=== PATIENT | female | born 2000 | race Caucasian/White ===

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

== ENCOUNTER 2021-01-16 15:43 | Emergency (ER) | payer OTHER, SELFPAY ==
[2021-01-16 16:11] VITALS: BP 0/0; PULSE 0; RESP 0; TEMP -17.7; TEMP 0
== END 2021-01-16 16:12 | disposition left against medical advice (07) ==
LOC: UTC 15:48
PROVIDERS: Emergency Provider Nurse Practitioner Family
DX: Z53.21 Procedure and treatment not carried out due to patient leaving prior to being seen by health care provider (principal)

== ENCOUNTER → 2021-01-18 12:23 | Outpatient (CLI) | payer OTHER, SELFPAY | PROVIDERS: Visit Provider Nurse Practitioner Family | DX: Z20.822 Contact with and (suspected) exposure to COVID-19 (principal) | CPT/HCPCS: C9803; U0003; U0005 ==

== ENCOUNTER 2021-03-05 12:32 | Emergency (ER) | payer OTHER, SELFPAY ==
[2021-03-05 13:38] VITALS: BP 107/68; PULSE 65; RESP 18; TEMP 36.9; O2SAT 100; BMI 26.6
[2021-03-05 14:25] LABS: UTC Influenza A Antigen Negative (Negative); UTC Strep Screen (Rapid) Negative (Negative)
[2021-03-05 14:26] LABS: UTC Influenza B Antigen Negative (Negative)
--- NOTE | 2021-03-05 14:49 | HMH.EDUTC ---
[facility] [place] Disposition Clinical Impression: Viral syndrome Disposition: Home, Self-Care Condition on Discharge: Good Instructions: DI for Viral Syndrome, DI for Vomiting -- Adult Additional Instructions: Drink extra fluids with and between meals. If you have difficulty drinking, try very small amounts of water or suck on ice chips. ? Avoid fruit juices, as these do not replace minerals and can actually increase diarrhea. ? Children and adults can use sports drinks to replenish electrolytes. Younger children and infants should use products formulated for children, like oral rehydration solutions. ? Eat food in small amounts and let your stomach recover. ? Get lots of rest. You may feel tired or weak. ? No greasy or fried foods for the next 24-48 hours BRAT diet Bananas Rice Apples and [place] ? Make sure to drink plenty of liquids ? Return if needed ? Straight to ER if any life threatening symptoms ? Zofran as prescribed ? Follow up with family doctor in the next 48-72 hours if no improvement or any worsening of symptoms Prescriptions: Ondansetron [Zofran 4mg ODT] 4 mg PO TIDP PRN #10 tab PRN Reason: Vomiting Transmission Status: Pending to [facility] Referrals: Provider,Referral, MD [Primary Care Provider] - As needed Forms: Work/School Release Time of Disposition: 14:57 Medical Decision Making - Jamey Inquiry Pt receiving controlled substance: No Jamey was queried for this patient: No Vital Signs: 03/05/21 13:38 Temperature 98.4 F Temperature Source Oral Pulse Rate [Right Brachial] 65 Respiratory Rate 18 Blood Pressure [Right Arm] 107/68 L Blood Pressure Mean [Right Arm] 81 Blood Pressure Source [Right Arm] Automatic Cuff Blood Pressure Position [Right Arm] Sitting 02 Sat by Pulse Oximetry 100 Oxygen Delivery Method Room Air - Lab Data Lab results reviewed: Yes: I reviewed the patient's lab results. Lab Results 03/05/21 14:24: Influenza Type A Ag Negative, Influenza Type B Ag Negative 03/05/21 14:24: Strep Scn Rapid Clinic Negative Orders (Tests/Meds): ORDERS Category Date Time Status Covid-19 Nasal PCR ([facility]) Routine Lab 03/05/21 14:56 Ordered Strep Screen Confirmation Stat Micro 03/05/21 14:24 Received [facility] [place] HPI - General Stated complaint: vomiting,fever Time Seen by Provider: 03/05/21 14:49 Mode of Arrival: Ambulatory Source of Information: Patient Limitations: No Limitations Description of Symptoms (Recalled from Triage Doc. by RN): Vomiting, fever x2 days, covid test negative yesterday HEENT Symptoms (Recalled from RN notes): Yes Resp Symptoms (Recalled from RN notes): Yes Skin Symptoms (Recalled from RN notes): No MS Symptoms (Recalled from RN notes): No Functional Status (Recalled from RN notes): wnl - History of Present Illness Provider Complaint: Patient states that she has been having fever, body aches, chills, and vomiting State that they tested her for COVID at work yesterday but it was a rapid and she didnt trust them that much - Related Data Previous Rx's Medication Instructions Recorded Azithromycin [Zithromax 250mg 250 mg PO DIRECTED #6 tab 05/13/20 tab] Benzonatate [Tessalon Perle 100mg 100 mg PO TID #30 cap 05/13/20 Cap] predniSONE [Prednisone 20mg 20 mg PO BID #10 tab 05/13/20 Tab] Benzonatate [Tessalon Perle 100mg 100 mg PO TID PRN #15 cap 10/31/20 Cap*] Ondansetron [Zofran 4mg ODT] 4 mg PO TIDP PRN #6 tab 10/31/20 Ondansetron [Zofran 4mg ODT] 4 mg PO DAILYP PRN #12 tab 11/25/20 Ibuprofen [Ibuprofen 600mg 600 mg PO Q6HP PRN #30 tab 12/15/20 Tablet] Ondansetron [Zofran 4mg ODT] 4 mg PO TIDP PRN #10 tab 03/05/21 Allergies Allergy/AdvReac Type Severity Reaction Status Date / Time No Known Allergies Allergy Verified 05/04/19 11:59 - Worker's Comp Is this a Worker's Comp case?: No H History - Hepatitis A Screen Drug use history?: No High risk sexual behaviors?: No History of sexual
[2021-03-05 14:55] VITALS: BP 107/68; PULSE 65; RESP 18; TEMP 36.9; O2SAT 100
== END 2021-03-05 15:00 | disposition home or self-care (01) ==
PROVIDERS: Emergency Provider Nurse Practitioner
DX: B34.9 Viral infection, unspecified (principal); K21.9 Gastro-esophageal reflux disease without esophagitis; G43.709 Chronic migraine without aura, not intractable, without status migrainosus
CPT/HCPCS: 87804; 87880; 99203; C9803; G0463; U0003; U0005

== ENCOUNTER 2021-04-30 11:55 | Emergency (ER) | payer OTHER, SELFPAY ==
[2021-04-30 12:11] VITALS: BP 125/76; PULSE 74; RESP 18; TEMP 37.1; O2SAT 98; BMI 29.2
--- NOTE | 2021-04-30 12:23 | HMH.EDUTC ---
[facility] [place] Disposition Clinical Impression: Strep throat Disposition: Home, Self-Care Condition on Discharge: Good Instructions: Strep Throat, DI for Strep Throat Additional Instructions: *Monitor Temp, Over the counter Motrin or Tylenol as directed/as needed Tylenol every 4 hours and Motrin every 6 hours (as long as your family doctor has told you that you can take it) for fever or pain. and straight to ER if unable to lower temp less than 101.0 after medication given *Warm salt water gargles may help to soothe the throat *Throat Lozenges *Warm fluids like tea with honey may help to soothe the throat *Sleep elevated *Humidifier/Vaporizer *If you did not take Penicillin shot or was unable to, start taking antibiotic immediately and make sure that you take it for the FULL length of time although you should start to feel better in 24-48 hours *change toothbrush and toothpaste 24-48 hours after starting to take antibiotics so you do not reinfect yourself Monitor Temp. Tylenol and/or Ibuprofen as needed. ER if fever is no less than 101 despite alternating Tylenol and Ibuprofen * Encourage fluids, water, Gatorade, powerade, pedialyte if infant/toddler/or child *Cold fluids, popsicles and ice cream may feel good on his throat Follow up IMMEDIATELY for new or worsening symptoms or no Noticeable improvement over the next 48-72 hours. 911 for difficulty breathing or swallowing Prescriptions: Amoxicillin [Amoxicillin 875MG Tab] 875 mg PO Q12H #20 tab Transmission Status: Pending to [email or web address] Ondansetron [Zofran 4mg ODT] 4 mg PO TIDP PRN #9 tab PRN Reason: Nausea Transmission Status: Pending to [email or web address] Referrals: Provider,Referral, MD [Primary Care Provider] - As needed Forms: Work/School Release Time of Disposition: 12:29 Medical Decision Making - Jamey Inquiry Pt receiving controlled substance: No Jamey was queried for this patient: No Vital Signs: 04/30/21 12:11 Temperature 98.7 F Temperature Source Temporal Artery Scan Pulse Rate [Right Brachial] 74 Respiratory Rate 18 Blood Pressure [Right Arm] 125/76 Blood Pressure Mean [Right Arm] 92 Blood Pressure Source [Right Arm] Automatic Cuff Blood Pressure Position [Right Arm] Sitting 02 Sat by Pulse Oximetry 98 Oxygen Delivery Method Room Air - Lab Data Lab results reviewed: Yes: I reviewed the patient's lab results. Lab Results 04/30/21 12:15: Strep Scn Rapid Clinic Positive A Orders (Tests/Meds): ORDERS Category Date Time Status Strep Screen Confirmation Stat Micro 04/30/21 12:15 Received [facility] [place] HPI - General Stated complaint: sore throat, vomiting, abd pains Time Seen by Provider: 04/30/21 12:23 Mode of Arrival: Ambulatory Source of Information: Patient Limitations: No Limitations Description of Symptoms (Recalled from Triage Doc. by RN): vomiting, abdominal pain, sore throat, cough HEENT Symptoms (Recalled from RN notes): Yes Resp Symptoms (Recalled from RN notes): No Skin Symptoms (Recalled from RN notes): No MS Symptoms (Recalled from RN notes): No Functional Status (Recalled from RN notes): WNL - History of Present Illness Provider Complaint: Patient states that she has been having nausea, vomiting, stomach feeling achy and sore throat States that she gets this way when she has strep throat and thinks she may have it now - Related Data Previous Rx's Medication Instructions Recorded Azithromycin [Zithromax 250mg 250 mg PO DIRECTED #6 tab 05/13/20 tab] Benzonatate [Tessalon Perle 100mg 100 mg PO TID #30 cap 05/13/20 Cap] predniSONE [Prednisone 20mg 20 mg PO BID #10 tab 05/13/20 Tab] Benzonatate [Tessalon Perle 100mg 100 mg PO TID PRN #15 cap 10/31/20 Cap*] Ondansetron [Zofran 4mg ODT] 4 mg PO TIDP PRN #6 tab 10/31/20 Ondansetron [Zofran 4mg ODT] 4 mg PO DAILYP PRN #12 tab 11/25/20 Ibuprofen [Ibuprofen 600mg 600 mg PO Q6HP PRN #30 tab 12/15/20 Tablet] Ondanse
[2021-04-30 12:26] LABS: UTC Strep Screen (Rapid) Positive (Negative)
[2021-04-30 12:34] VITALS: BP 124/76; PULSE 74; RESP 18; TEMP 37.1; O2SAT 98
== END 2021-04-30 12:34 | disposition home or self-care (01) ==
PROVIDERS: Emergency Provider Nurse Practitioner
DX: J02.0 Streptococcal pharyngitis (principal); K21.9 Gastro-esophageal reflux disease without esophagitis
CPT/HCPCS: 87880; 99202; G0463

== ENCOUNTER → 2021-05-22 08:44 | Outpatient (CLI) | payer OTHER, SELFPAY ==
--- NOTE | 2021-05-22 08:52 | XR_ITS ---
PROCEDURE INFORMATION: Exam: XR Left Knee Exam date and time: 05/22/2021 8:57 AM Age: 21 years old Clinical indication: Pain; Knee; Left; Additional info: Left knee pain TECHNIQUE: Imaging protocol: XR Left knee. Views: 4 or more views. COMPARISON: CR XR KNEE LT 3V 12/15/2020 5:10 PM FINDINGS: Bones/joints: Normal. The joint spaces are maintained. No fractures or dislocations. Soft tissues: Normal. No swelling or abnormal density. IMPRESSION: Unremarkable knee.
== END ==
PROVIDERS: Visit Provider Orthopaedic Surgery
DX: M25.562 Pain in left knee (principal)
CPT/HCPCS: 73564

== ENCOUNTER → 2021-06-05 16:01 | Outpatient (CLI) | payer OTHER, SELFPAY ==
--- NOTE | 2021-06-05 16:01 | MR_ITS ---
PROCEDURE INFORMATION: Exam: MR Left Lower Extremity Joint Without Contrast, Knee Exam date and time: 06/05/2021 4:08 PM Age: 21 years old Clinical indication: Pain; Knee; Left; Additional info: Left knee pain. PT fell off roof [id number] ago. Lateral sided knee pain. Pain when bending. Intermittent swelling. Knee instability. TECHNIQUE: Imaging protocol: MR of the Left lower extremity joint without contrast. Exam focused on the knee. COMPARISON: CR XR KNEE LT 4V 05/22/2021 8:57 AM FINDINGS: Bones and cartilage: Unremarkable. No bone abnormalities. Articular cartilage normal. Joint spaces: No joint effusion. Medial meniscus: See Lateral meniscus finding. Lateral meniscus: There is a small nondisplaced horizontal oblique tear anterior horn lateral meniscus extending to the inferior articular surface. No other internal derangement. Anterior cruciate ligament: Unremarkable. No tear. Posterior cruciate ligament: Unremarkable. No tear. Medial capsule and supporting structures: Unremarkable. No tear. Lateral capsule and supporting structures: Unremarkable. No tear. Extensor mechanism of knee: Unremarkable. No tear. Muscles: Unremarkable. Soft tissues: Unremarkable. IMPRESSION: There is a small nondisplaced horizontal oblique tear anterior horn lateral meniscus extending to the inferior articular surface. No other internal derangement.
== END ==
PROVIDERS: Visit Provider Orthopaedic Surgery
DX: M25.562 Pain in left knee (principal)
CPT/HCPCS: 73721

== ENCOUNTER 2021-07-03 10:49 | Emergency (ER) | payer OTHER, SELFPAY ==
[2021-07-03 10:59] VITALS: BP 130/65; PULSE 74; RESP 18; TEMP 36.7; O2SAT 97; BMI 29.9
[2021-07-03 11:29] LABS: Strep Scrn Group A (Rapid) Negative (Negative)
--- NOTE | 2021-07-03 11:54 | HMH.EDUTC ---
[facility] [place] Disposition Clinical Impression: Pharyngitis Qualifiers: Pharyngitis/tonsillitis etiology: unspecified etiology Qualified Code(s): J02.9 - Acute pharyngitis, unspecified Sinus infection Qualifiers: Sinusitis location: unspecified location Chronicity: acute Recurrence: non-recurrent Qualified Code(s): J01.90 - Acute sinusitis, unspecified Disposition: Home, Self-Care Condition on Discharge: Good Instructions: DI for Pharyngitis/Tonsillopharyngitis -- Adult Additional Instructions: Drink plenty of fluids. Take tylenol or ibuprofen for pain or fever. Take the medications as directed. Follow up with your regular doctor. GO TO THE ER FOR ANY WORSENING SYMPTOMS Referrals: Provider,Referral, MD [Primary Care Provider] - Forms: Work/School Release Time of Disposition: 11:58 Medical Decision Making - Medical Records Medical records reviewed: No: I reviewed the patient's medical records. - Jamey Inquiry Pt receiving controlled substance: No Vital Signs: 07/03/21 10:59 07/03/21 12:03 07/03/21 12:27 Temperature 98.0 F 98.0 F 98.0 F Temperature Source Oral Pulse Rate 74 74 Pulse Rate [Left] 74 Respiratory Rate 18 18 18 Blood Pressure 130/65 130/65 Blood Pressure [Right Arm] 130/65 Blood Pressure Mean [Right Arm] 86 02 Sat by Pulse Oximetry 97 - Lab Data Lab results reviewed: Yes: I reviewed the patient's lab results. Lab Results 07/03/21 10:59: Group A Strep Rapid Negative [facility] [place] HPI - General Stated complaint: sore throat, nasal congestion, fever Time Seen by Provider: 07/03/21 11:54 Mode of Arrival: Ambulatory Source of Information: Patient Limitations: No Limitations Description of Symptoms (Recalled from Triage Doc. by RN): pt c/o sore throat, fever, and stuffy nose that began 1 week ago. HEENT Symptoms (Recalled from RN notes): Yes Resp Symptoms (Recalled from RN notes): Yes Skin Symptoms (Recalled from RN notes): No MS Symptoms (Recalled from RN notes): No Functional Status (Recalled from RN notes): wnl - History of Present Illness Provider Complaint: She states that for the past 1 week she has had sinus congestion and a sore throat. - Related Data Home Medications Medication Instructions Recorded Confirmed No Known Home Medications 07/04/21 07/04/21 Allergies Allergy/AdvReac Type Severity Reaction Status Date / Time No Known Allergies Allergy Verified 06/17/21 13:18 - Worker's Comp Is this a Worker's Comp case?: No Is this an [facility] Worker's Comp?: No Is this a [facility] Worker's Comp?: No [facility] History - Hepatitis A Screen Attestation statement:: This patient has been screened for Hepatitis A risk factors. I have reviewed the patient's past medical history: Yes Medical History: Reports:: Depression, Gastroesophageal Reflux Disease(GERD), Migraine Denies:: Cancer, Diabetes Mellitus Type 1, Diabetes Mellitus Type 2, MRSA, Seizures Other Medical History: Denies: Blood Transfusion Reaction Laterality Cases: Bilateral: Tonsillectomy Other Surgeries: Yes: No Previous Surgery, Other Amputation: No Fractures: No - Social History Smoking Status: Never smoker # Packs/Day (cigarettes): 0 Alcohol Intake: never Substance Use Type: marijuana Occupational Status: other Housing: house Household Members: family - Psychiatric History Pschychiatric History:: Reports:: Depression Family Hx:: No significant family history ROS Obtained: Yes All systems reviewed & no additional complaints - Constitutional Constitutional: Reports as per HPI - Eyes Eyes: Denies eye discharge - ENT Ears, Nose, Mouth, and Throat: Reports as per HPI - Cardiovascular Cardiovascular: Denies chest pain - Respiratory Respiratory: Denies chest congestion, Reports cough Physical Exam - General General appearance: alert, in no apparent distress - Head Head exam: atraumatic, normocephalic, normal inspection - Eye Eye exam: Present: normal appeara
[2021-07-03 12:03] VITALS: BP 130/65; PULSE 74; RESP 18; TEMP 36.7
[2021-07-03 12:27] VITALS: BP 130/65; PULSE 74; RESP 18; TEMP 36.7
== END 2021-07-03 12:28 | disposition home or self-care (01) ==
PROVIDERS: Emergency Provider Nurse Practitioner Family
DX: J02.9 Acute pharyngitis, unspecified (principal); J01.90 Acute sinusitis, unspecified; K21.9 Gastro-esophageal reflux disease without esophagitis; G43.909 Migraine, unspecified, not intractable, without status migrainosus; F32.A Depression, unspecified
CPT/HCPCS: 87430; 99213; G0463

== ENCOUNTER 2021-07-04 22:53 | Emergency (ER) | payer OTHER, SELFPAY ==
[2021-07-04 22:53] VITALS: BP 135/70; PULSE 74; RESP 16; TEMP 36.8; O2SAT 98; BMI 29.9
--- NOTE | 2021-07-04 22:56 | ECG_ITS ---
APPROVED REPORT Exam: Resting ECG HR:79 bpm ECG Measurements Heart Rate 79 AXES WY 141 P 36 QRSd 94 QRS 62 QT 343 T 44 QTc 377 Conclusion SINUS RHYTHM WITH SINUS ARRHYTHMIA NORMAL ECG UNCONFIRMED REPORT Electronically signed by : Charles Limon MD 07/06/2021 20:14:42
[2021-07-04 23:10] LABS: ABG Base Excess -2.5 mmol/L (-2.4-2.3); ABG HCO3 21.9 mmhg (22.0-26.0); ABG Oxygen Saturation 98 % (90-100); ABG PH 7.43 mmol/L (7.35-7.45); ABG PO2 97.6 mmhg (80-100)
[2021-07-04 23:11] LABS: Allen's Test Acceptable; Oxygen ROOM AIR %; Source Right Radial
--- NOTE | 2021-07-04 23:15 | XR_ITS ---
PROCEDURE INFORMATION: Exam: XR Chest Exam date and time: 07/04/2021 11:33 PM Age: 21 years old Clinical indication: Shortness of breath and other: Possible overdose TECHNIQUE: Imaging protocol: XR of the chest. Views: 1 view. COMPARISON: CR XR CHEST 2V 04/16/2020 4:08 AM FINDINGS: Lungs: Stable calcified granuloma in the peripheral left mid lung. Lungs otherwise clear. No consolidation. Pleural spaces: No pleural effusion. No pneumothorax. Heart/Mediastinum: Normal heart size. Bones/joints: Unremarkable. IMPRESSION: No acute findings.
[2021-07-04 23:19] LABS: Microscopic,Cath URINE MICROSCOPIC (MICROSCOPIC)
[2021-07-04 23:23] LABS: Basophils # 0.3 K/mm3 (0-0.2); Basophils % 2.5 % (0.1-2.0); Eosinophils # 0.2 K/mm3 (0.0-0.4); Eosinophils % 1.5 % (0.1-12.0); Hematocrit 42.8 % (37.0-47.0); Hemoglobin 14.2 g/dL (12.2-16.2); Lymphocytes # 2.4 K/mm3 (0.7-4.5); Lymphocytes % 23.3 % (10-50); Mean Corpuscular HGB Conc 33.2 g/dL (31.8-35.4); Mean Corpuscular Hemoglobin 29.8 pg (27.0-31.2); Mean Corpuscular Volume 89.7 fl (81-99); Mean Platelet Volume 8.1 fl (7.4-10.4); Monocytes # 0.6 K/mm3 (0.1-1.0); Monocytes % 5.7 % (1.7-9.3); Neutrophils # 6.8 K/mm3 (1.8-7.8); Neutrophils % 67.1 % (37.0-80.0); Platelet Count 373 K/mm3 (142-424); Red Blood Count 4.77 M/mm3 (4.20-5.40); Red Cell Distribution Width 14.4 % (11.5-17.5); White Blood Count 10.2 K/mm3 (4.5-13.0)
[2021-07-04 23:25] LABS: Appearance,Urine/Cath CLEAR (Clear); Bilirubin,Cath Negative (Negative); Blood, Urine/Cath 1+ (Negative); Color,Urine/Cath YELLOW (Yellow); Glucose,Urine/Cath (UA) Negative (Negative); Ketones,Urine/Cath Negative (Negative); Leukocyte Esterase,Cath Negative (Negative); Nitrate,Cath Negative (Negative); Protein,Urine/Cath Negative (Negative); Specific Gravity, Urine/Cath <= 1.005 (1.005-1.030); Urobilinogen,Cath 0.2 EU/dl (0.2)
[2021-07-04 23:26] LABS: Alanine Aminotransferase 18 U/L (12-78); Albumin Level 4.7 g/dl (3.5-5.0); Albumin/Globulin Ratio 1.8 (1.1-1.8); Alkaline Phosphatase 80 U/L (38-126); Anion Gap 15.4 mEq/L (5-15); Aspartate Amino Transferase 21 U/L (14-36); Bilirubin,Total 0.4 mg/dl (0.2-1.3); Blood Urea Nitrogen 9 mg/dl (7-17); Calcium 9.7 mg/dl (8.4-10.2); Carbon Dioxide 27 mmol/L (22.0-30.0); Chloride 106 mmol/L (98-107); Creatinine Clearance Estimated 129 mL/min (50-200); Estimated Glomerular Filt Rate 80 ml/min (>60); GFR (African American) 97 ML/MIN (>60); Globulin 2.6 g/dL (1.3-3.2); Glucose 109 mg/dl (74-100); Potassium 3.4 mmoL/L (3.5-5.1); Sodium 145 mmol/L (136-145); Total Protein,Serum 7.3 g/dl (6.3-8.2)
[2021-07-04 23:27] LABS: Acetaminophen < 10 ug/ml (10-30); Ethyl Alcohol 125 mg/dl (0-10); Salicylate < 1.0 mg/dL (2.0-20.0)
[2021-07-04 23:28] LABS: Urine Pregnancy, HCG Qual. Negative (Negative)
[2021-07-04 23:31] LABS: Lactic Acid 1.8 mmol/L (0.7-2.1)
[2021-07-04 23:32] LABS: C-Reactive Protein 0.8 mg/L (0-4)
[2021-07-04 23:35] LABS: Barbiturates Screen,Urine Negative ng/ml (<200); Benzodiazepines Screen,Urine Negative ng/ml (<200)
[2021-07-04 23:36] LABS: Amphetamine/Metha Screen,Urine Negative ng/ml (<1000); WBC,Urine/Cath Occasional #/hpf (0-3)
[2021-07-04 23:37] LABS: Cannabinoid Screen,Urine Negative ng/ml (<50); Squamous Epithelial Ur./Cath Occasional #/hpf (0-5)
[2021-07-04 23:38] LABS: Cocaine Screen,Urine Negative ng/ml (<300); Methadone Screen,Urine Negative ng/ml (<300)
[2021-07-04 23:39] LABS: Opiate Screen,Urine Negative ng/ml (<300); Phencyclidine Screen,Urine Negative ng/ml (<25)
[2021-07-04 23:48] LABS: Erythrocyte Sedimentation Rate 13 mm/hr (0-20)
[2021-07-04 23:53] LABS: Procalcitonin 0.059 ng/mL (0.0-2.0)
--- NOTE | 2021-07-05 01:08 | HMH.EDAMS ---
ED Disposition Clinical Impression: Alcoholic intoxication Qualifiers: Complication of substance-induced condition: uncomplicated Qualified Code(s): F10.920 - Alcohol use, unspecified with intoxication, uncomplicated Disposition: Home, Self-Care Condition on Discharge: Good Instructions: DI for Alcohol Poisoning Additional Instructions: call pcp for follow up Referrals: Provider,Referral, [Primary Care Provider] - - Critical Care Critical Care Time: No Attestation: On 07/04/21, the high probability of a clinically significant, sudden or life threatening deterioration of the following system(s) required my full and direct attention, intervention and personal management. The time I documented below is in addition to time spent performing reported procedures but includes the following listed in this critical care notation. Medical Decision Making - Medical Records Medical records reviewed: Yes: I reviewed the patient's medical records. - Jamey Inquiry Pt receiving controlled substance: No Vital Signs: 07/04/21 22:53 Temperature 98.3 F Temperature Source Oral Pulse Rate [Left Radial] 74 Respiratory Rate 16 Blood Pressure [Right Arm] 135/70 Blood Pressure Mean [Right Arm] 91 Blood Pressure Position [Right Arm] Sitting 02 Sat by Pulse Oximetry 98 Oxygen Delivery Method Room Air - Lab Data Lab results reviewed: Yes: I reviewed the patient's lab results. Lab Results 07/04/21 23:00: WBC 10.2, RBC 4.77, Hgb 14.2, Hct 42.8, MCV 89.7, MCH 29.8, MCHC 33.2, RDW 14.4, Plt Count 373, MPV 8.1, Neut % (Auto) 67.1, Lymph % (Auto) 23.3, Mora % (Auto) 5.7, Eos % (Auto) 1.5, Baso % (Auto) 2.5 H, Neut # (Auto) 6.8, Lymph # (Auto) 2.4, Mora # (Auto) 0.6, Eos # (Auto) 0.2, Baso # (Auto) 0.3 H 07/04/21 23:00: Sodium 145, Potassium 3.4 L, Chloride 106, Carbon Dioxide 27, Anion Gap 15.4 H, BUN 9, Creatinine 0.90, Estimated Creat Clear 129, Estimated GFR 80, Est GFR ( Amer) 97, Glucose 109 H, Calcium 9.7, Total Bilirubin 0.4, AST 21, ALT 18, Alkaline Phosphatase 80, C-Reactive Protein 0.8, Total Protein 7.3, Albumin 4.7, Globulin 2.6, Albumin/Globulin Ratio 1.8, Salicylates < 1.0 L, Acetaminophen < 10 L 07/04/21 23:00: Plasma/Serum Alcohol 125 H 07/04/21 23:00: Lactate 1.8 07/04/21 23:00: ESR 13 07/04/21 23:00: Procalcitonin 0.059 07/04/21 23:04: Specimen Source Right radial, O2 % Room air, ABG pH 7.43, ABG pCO2 34.0 L, ABG pO2 97.6, ABG HCO3 21.9 L, ABG Total CO2 23.0, ABG O2 Saturation 98, ABG Base Excess -2.5 L, Basil Test Acceptable 07/04/21 23:05: Urine Color Yellow, Urine Appearance Clear, Urine pH 6.0, Ur Specific [place] <= 1.005, Urine Protein Negative, Urine Glucose (UA) Negative, Urine Ketones Negative, Urine Blood 1+, Urine Nitrate Negative, Urine Bilirubin Negative, Urine Urobilinogen 0.2, Ur Leukocyte Esterase Negative, Urine RBC None, Urine WBC Occasional, Ur Squamous Epith Cells Occasional, Urine Bacteria None 07/04/21 23:05: Urine HCG, Qual Negative 07/04/21 23:05: Urine Opiates Screen Negative, Urine Methadone Screen Negative, Ur Barbituates Screen Negative, Ur Phencyclidine Scrn Negative, Ur Amphetamines Screen Negative, U Benzodiazepines Scrn Negative, Urine Cocaine Screen Negative, U Marijuana (THC) Screen Negative Result diagrams: 07/04/21 23:00 07/04/21 23:00 Orders (Tests/Meds): ED MEDICATIONS Generic Name Dose Route Start Last Admin Trade Name Freq PRN Reason Stop Dose Admin Lactated Ringer's 1,000 mls @ 999 mls/hr 07/04/21 23:30 07/04/21 23:17 Lactated Ringer's 1000 Ml Bag IV 07/05/21 00:30 999 mls/hr .Q1H1M BAYLEE Administration ORDERS Category Date Time Status Blood Culture Stat Micro 07/04/21 23:00 Received - Radiology Data #1 Image(s): Chest Image Reviewed: Yes I have reviewed radiologist's interpretation Preliminary Findings: Normal/NAD - ECG Data Tracing #1 Normal Sinus Rhythm: Yes Ischemic changes: non-specific ST-T wave changes [facility]
[2021-07-05 01:35] VITALS: BP 130/68; PULSE 72; RESP 18; TEMP 36.8; O2SAT 98
== END 2021-07-05 01:40 | disposition home or self-care (01) ==
PROVIDERS: Emergency Provider Emergency Medicine
DX: F10.920 Alcohol use, unspecified with intoxication, uncomplicated (principal); R55 Syncope and collapse; K21.9 Gastro-esophageal reflux disease without esophagitis; F32.9 Major depressive disorder, single episode, unspecified
CPT/HCPCS: 51702; 71045; 80053; 80305; 80329; 81001; 81025; 82803; 83605; 84145; 85025; 85651; 86140; 87040; 93005; 96360; 99285

== ENCOUNTER 2021-10-07 08:36 | Emergency (ER) | payer OTHER, SELFPAY ==
[2021-10-07 08:45] VITALS: BP 133/67; PULSE 72; RESP 19; TEMP 36.6; O2SAT 98; BMI 29.1
--- NOTE | 2021-10-07 09:05 | HMH.EDUTC ---
[facility] [place] Disposition Clinical Impression: Viral syndrome Disposition: Home, Self-Care Condition on Discharge: Good Instructions: DI for Fever (Symptom) -- Adult, DI for COVID-19 (Suspected or Confirmed ), Preventing the Spread of Coronavirus Discharge Instructions Additional Instructions: *Monitor Temp, Over the counter Motrin or Tylenol as directed/as needed Tylenol every 4 hours and Motrin every 6 hours (as long as your family doctor has told you that you can take it) for fever or pain. and straight to ER if unable to lower temp less than 101.0 after medication given *Warm salt water gargles may help to soothe the throat *Throat Lozenges *Warm fluids like tea with honey may help to soothe the throat *Sleep elevated *Humidifier/Vaporizer Follow up IMMEDIATELY for new or worsening symptoms or no Noticeable improvement over the next 48-72 hours. 911 for difficulty breathing or swallowing You were tested for today for COVID19 your test result should be back in the next 24-48 hours, you may check your results on the [facility] My Health Portal Make sure to take your Vitamins Vit. C Vit D and Zinc if you can take them Prescriptions: Ondansetron [Zofran 4mg ODT] 4 mg PO TIDP PRN #10 tab PRN Reason: Nausea Transmission Status: Pending to [id number] Referrals: Provider,Referral, MD [Primary Care Provider] - As needed Forms: Work/School Release Time of Disposition: 09:15 Medical Decision Making - Jamey Inquiry Pt receiving controlled substance: No Jamey was queried for this patient: No Vital Signs: 10/07/21 08:45 Temperature 97.8 F Temperature Source Oral Pulse Rate [Right Brachial] 72 Respiratory Rate 19 Blood Pressure [Right Arm] 133/67 Blood Pressure Mean [Right Arm] 89 Blood Pressure Source [Right Arm] Automatic Cuff Blood Pressure Position [Right Arm] Sitting 02 Sat by Pulse Oximetry 98 Oxygen Delivery Method Room Air - Lab Data Lab results reviewed: Yes: I reviewed the patient's lab results. Orders (Tests/Meds): ORDERS Category Date Time Status Covid-19 Nasal PCR ([facility]) Routine Lab 10/07/21 08:40 Received [facility] [place] HPI - General Stated complaint: fever, chill Time Seen by Provider: 10/07/21 09:05 Mode of Arrival: Ambulatory Source of Information: Patient Limitations: No Limitations Description of Symptoms (Recalled from Triage Doc. by RN): PATIENT C/O FEVER CHILLS, VOMITING AND HEADACHE X 2 DAYS HEENT Symptoms (Recalled from RN notes): Yes Resp Symptoms (Recalled from RN notes): No Skin Symptoms (Recalled from RN notes): No MS Symptoms (Recalled from RN notes): No Functional Status (Recalled from RN notes): WNL - History of Present Illness Provider Complaint: Patient states that she hasnt felt well for the last couple of days Statse that today she has been having headache, vomiting, chills, body aches and nasal congestion States that she was unable to go to work and was worried that she may have COVID so she came in to get checked out - Related Data Previous Rx's Medication Instructions Recorded Ondansetron [Zofran 4mg ODT] 4 mg PO TIDP PRN #10 tab 10/07/21 Allergies Allergy/AdvReac Type Severity Reaction Status Date / Time No Known Allergies Allergy Verified 06/17/21 13:18 - Worker's Comp Is this a Worker's Comp case?: No [facility] History - Hepatitis A Screen Attestation statement:: This patient has been screened for Hepatitis A risk factors. I have reviewed the patient's past medical history: Yes Medical History: Reports:: Depression, Gastroesophageal Reflux Disease(GERD), Migraine Denies:: Cancer, Diabetes Mellitus Type 1, Diabetes Mellitus Type 2, MRSA, Seizures Other Medical History: Denies: Blood Transfusion Reaction Laterality Cases: Bilateral: Tonsillectomy Other Surgeries: Yes: No Previous Surgery, Other Amputation: No Fractures: No - Social History Smoking Status: Never smoker # Packs/Day (cigarettes): 0 Alcohol Intake: never Sub
[2021-10-07 09:18] VITALS: BP 133/67; PULSE 72; RESP 19; TEMP 36.6; O2SAT 98
[2021-10-07 09:23] LABS: UTC Influenza A Antigen Negative (Negative); UTC Influenza B Antigen Negative (Negative)
== END 2021-10-07 09:21 | disposition home or self-care (01) ==
PROVIDERS: Emergency Provider Nurse Practitioner
DX: B34.9 Viral infection, unspecified (principal)
CPT/HCPCS: 87804; 99212; C9803; G0463; U0003; U0005

== ENCOUNTER 2022-01-23 18:24 | Emergency (ER) | payer OTHER, SELFPAY ==
[2022-01-23 18:34] VITALS: BP 148/67; PULSE 88; RESP 16; TEMP 37.2; O2SAT 97; BMI 30.7
--- NOTE | 2022-01-23 18:38 | EXP.UTC ---
Discharge Plan Disposition Patient Disposition: Home, Self-Care Condition: Good Prescriptions Prescriptions: New azithromycin [Zithromax] 250 mg tablet 250 mg PO UD DOSE PK Qty: 6 0RF Rx Instructions: Take two (2) tablets today, then one (1) tablet days #2 thru #5 [id number] [Bromfed DM] 2-30-10 mg/5 mL Syrup 5 ml PO Q6H PRN (Reason: Cough) Qty: 240 0RF methylprednisolone 4 mg Tablets,Dose Pack 4 mg PO DIRECTED Qty: 21 0RF No Action ondansetron 4 MG tablet,disintegrating 4 mg PO TIDP PRN (Reason: Nausea) Qty: 10 0RF Referrals Follow up/Referrals: Provider,Referral, MD [Primary Care Provider] - See instructions Activity Restrictions/Add. Instructions Additional Instructions/Restrictions: Drink plenty of fluids. Take tylenol or ibuprofen for pain or fever. Take the medications as directed. Follow up with your regular doctor. GO TO THE ER FOR ANY WORSENING SYMPTOMS Clinical Impressions Clinical Impression: Acute bronchitis, Viral syndrome, COVID-19 Stand Alone Forms Stand Alone Forms: Work/School Release Instructions Patient Instructions: Preventing the Spread of Coronavirus Discharge Instructions, Coronavirus Disease 2019 Discharge ED Provider: Basil Galvez [facility] General Stated complaint: at home covid test pos 01/23, cough, congestion Time Seen by Provider: 01/23/22 18:38 History of Present Illness Provider Complaint: She states that she has been feeling bad for the past 4 days. She tested positive for covid-19 on a home test. She has a cough, sinus congestion, fever and body aches. Related Data Previous Rx's Medication Instructions Recorded ondansetron 4 mg disintegrating 4 mg PO TIDP PRN Nausea #10 tabs 10/07/21 tablet azithromycin 250 mg tablet 250 mg PO UD DOSE PK #6 tabs 01/23/22 (Zithromax) [id number] 5 ml PO Q6H PRN Cough #240 mL 01/23/22 2 mg-30 mg-10 mg/5 mL oral syrup (Bromfed DM) methylprednisolone 4 mg tablets in 4 mg PO DIRECTED #21 tabs 01/23/22 a dose pack Allergies Allergy/AdvReac Type Severity Reaction Status Date / Time No Known Allergies Allergy Verified 01/23/22 18:41 PFSH [facility] Social History Smoking Status: Never smoker second hand exposure: No alcohol intake: never substance use type: marijuana current occupational status: other Travel in the last 8 weeks: None household members: family housing: house ROS Obtained: Yes All systems reviewed & no additional complaints except as documented Constitutional Constitutional: Reports chills and Reports fever(s) Eyes Eyes: Denies eye discharge ENT Ears, Nose, Mouth, and Throat: Reports as per HPI Cardiovascular Cardiovascular: Denies chest pain Respiratory Respiratory: Denies chest congestion and Reports cough Gastrointestinal Gastrointestingal: Reports nausea; Denies abdominal pain, constipation, cramping, diarrhea or vomiting Musculoskeletal Musculoskeletal: Denies arthralgias Integumentary/Breasts Skin/Breast: Denies rash Neurologic Neurologic: Denies paresthesias Physical Exam General General appearance: alert and in no apparent distress Head Head exam: atraumatic, normocephalic and normal inspection Eye Eye exam: Present normal appearance, PERRL and EOMI ENT ENT exam: Present normal exam, normal oropharynx, mucous membranes moist, TM's normal bilaterally and normal external ear exam Neck Neck exam: Present normal inspection, full ROM and trachea midline; Absent meningismus or lymphadenopathy Chest Chest inspection: Present normal inspection and symmetric chest wall rise; Absent tenderness Respiratory Respiratory exam: Present normal lung sounds bilaterally; Absent respiratory distress Cardiovascular Cardiovascular exam: Present regular rate and normal rhythm; Absent JVD Abdominal Exam Abdominal exam: Present soft and normal bowel sounds
[2022-01-23 19:21] VITALS: BP 148/67; PULSE 88; RESP 16; TEMP 37.2
== END 2022-01-23 19:24 | disposition home or self-care (01) ==
PROVIDERS: Emergency Provider Nurse Practitioner Family
DX: U07.1 COVID-19 (principal); J20.9 Acute bronchitis, unspecified
CPT/HCPCS: 99212; C9803; G0463; U0003; U0005

== ENCOUNTER 2022-05-21 17:17 | Emergency (ER) | payer OTHER, SELFPAY ==
[2022-05-21 17:40] VITALS: BP 121/56; PULSE 86; RESP 20; TEMP 36.9; O2SAT 98; BMI 31.6
--- NOTE | 2022-05-21 17:43 | EXP.UTC ---
Discharge Plan Disposition Patient Disposition: Home, Self-Care Condition: Good Prescriptions Prescriptions: New cyclobenzaprine 10 mg Tablet 10 mg PO BID PRN (Reason: Muscle Spasm) Qty: 20 0RF ibuprofen [IBU] 800 mg tablet 800 mg PO Q8HP PRN (Reason: Moderate Pain) Qty: 30 0RF Referrals Follow up/Referrals: Provider,Referral, [Primary Care Provider] - See instructions Activity Restrictions/Add. Instructions Additional Instructions/Restrictions: Go home and rest. It would be best if you rested tomorrow too. No heavy lifting. No twisting. Take the oral medications as directed. The muscle relaxer (cyclobenzaprine--Flexeril) will make you drowsy, so don't drive or operate heavy machinery after taking it. Follow up with your regular doctor. GO TO THE ER FOR ANY WORSENING SYMPTOMS OR CONCERN, ESPECIALLY BOWEL OR BLADDER ISSUES, SADDLE AREA NUMBNESS, FEVER, ETC Clinical Impressions Clinical Impression: Muscle strain Stand Alone Forms Stand Alone Forms: Work/School Release Instructions Patient Instructions: DI for Muscle Strain, Cyclobenzaprine Discharge ED Provider: Basil Galvez [facility] General Stated complaint: back pain Time Seen by Provider: 05/21/22 17:43 History of Present Illness Provider Complaint: She states that since she lifted a heavy bag of trash 2 days ago, she has had left sided middle back pain with movement. Related Data Previous Rx's Medication Instructions Recorded cyclobenzaprine 10 mg tablet 10 mg PO BID PRN Muscle Spasm #20 05/21/22 tabs ibuprofen 800 mg tablet (IBU) 800 mg PO Q8HP PRN Moderate Pain 05/21/22 #30 tabs Allergies Allergy/AdvReac Type Severity Reaction Status Date / Time No Known Allergies Allergy Verified 05/21/22 17:50 [facility] Disclaimer: The information contained in this section may have been updated after the patient was seen, as this information can be updated by other users. Social History Smoking Status: Never smoker second hand exposure: No alcohol intake: never substance use type: marijuana current occupational status: other Travel in the last 8 weeks: None household members: family housing: house ROS Obtained: Yes All systems reviewed & no additional complaints except as documented Constitutional Constitutional: Denies chills and Denies fever(s) Eyes Eyes: Denies eye discharge ENT Ears, Nose, Mouth, and Throat: Denies dizziness, Denies otalgia and Denies sore throat Cardiovascular Cardiovascular: Denies chest pain Respiratory Respiratory: Denies shortness of breath, Denies chest congestion, Denies cough, Denies stridor and Denies wheezing Gastrointestinal Gastrointestingal: Denies nausea or vomiting Musculoskeletal Musculoskeletal: Reports as per HPI Integumentary/Breasts Skin/Breast: Denies rash Neurologic Neurologic: Denies dizziness and Denies paresthesias Allergic/Immunologic Allergic/Immunologic: Denies wheezing Physical Exam General General appearance: alert and in no apparent distress Head Head exam: atraumatic, normocephalic and normal inspection Eye Eye exam: Present normal appearance, PERRL and EOMI ENT ENT exam: Present normal exam, normal oropharynx, mucous membranes moist, TM's normal bilaterally and normal external ear exam Neck Neck exam: Present normal inspection, full ROM and trachea midline; Absent meningismus or lymphadenopathy Chest Chest inspection: Present normal inspection and symmetric chest wall rise; Absent tenderness Respiratory Respiratory exam: Present normal lung sounds bilaterally; Absent respiratory distress Cardiovascular Cardiovascular exam: Present regular rate and normal rhythm; Absent JVD Abdominal Exam Abdominal exam: Present soft and normal bowel sounds; Absent distention, tenderness or guarding Extremities Exam Extremities exam: Present normal inspection, full ROM and normal capillary refil
[2022-05-21 19:03] VITALS: BP 121/56; PULSE 86; RESP 20; TEMP 36.9; O2SAT 98
== END 2022-05-21 19:03 | disposition home or self-care (01) ==
PROVIDERS: Emergency Provider Nurse Practitioner Family
DX: S29.012A Strain of muscle and tendon of back wall of thorax, initial encounter (principal); X50.0XXA Overexertion from strenuous movement or load, initial encounter
CPT/HCPCS: 99212; 99214; G0463

== ENCOUNTER 2022-07-28 19:31 | Emergency (ER) | payer OTHER, SELFPAY ==
[2022-07-28 20:30] VITALS: BP 131/75; PULSE 76; RESP 19; TEMP 36.9; O2SAT 98; BMI 35.1
--- NOTE | 2022-07-28 21:07 | EXP.UTC ---
Discharge Plan Disposition Patient Disposition: Home, Self-Care Condition: Good Prescriptions Prescriptions: New amoxicillin 875 mg tablet 875 mg PO Q12H 10 Days Qty: 20 0RF No Action testosterone cypionate 200 mg/mL oil 100 mg IM WEEKLY Label Comments: inject 0.5 ML INTRAMUSCULARLY ONCE a WEEK DIRECTED --discard remainder in vial AFTER each injection-- Referrals Follow up/Referrals: Provider,Referral, MD [Primary Care Provider] - See instructions Activity Restrictions/Add. Instructions Additional Instructions/Restrictions: *Monitor Temp, Over the counter Motrin or Tylenol as directed/as needed Tylenol every 4 hours and Motrin every 6 hours (as long as your family doctor has told you that you can take it) for fever or pain. and straight to ER if unable to lower temp less than 101.0 after medication given *Sleep elevated *Humidifier/Vaporizer Take medication as prescribed Follow up IMMEDIATELY for new or worsening symptoms or no Noticeable improvement over the next 48-72 hours. 911 for difficulty breathing or swallowing Clinical Impressions Clinical Impression: Otitis media Instructions Patient Instructions: DI for Otitis Media (Middle Ear Infection)-Child, Middle Ear Infection, Amoxicillin Discharge ED Provider: Lashanda Leary [facility] [place] HPI General Stated complaint: left ear pain Mode of Arrival: Ambulatory Source of Information: Patient Limitations: No Limitations Time Seen by Provider: 07/28/22 21:07 Description of Symptoms (Recalled from Triage Doc. by RN): PATIENT C/O LEFT EAR PAIN X 2 DAYS HEENT Symptoms (Recalled from RN notes): Yes Resp Symptoms (Recalled from RN notes): No Skin Symptoms (Recalled from RN notes): No MS Symptoms (Recalled from RN notes): No Functional Status (Recalled from RN notes): WNL History of Present Illness Provider Complaint: Patient states that she has been having pain in her right ear on and off for a week and then in her left ear for a couple days States that today the pain was worse so she came in to get it checked Related Data Home Medications Medication Instructions Recorded Confirmed testosterone cypionate 200 mg/mL 100 mg IM WEEKLY . 07/28/22 07/28/22 intramuscular oil Previous Rx's Medication Instructions Recorded amoxicillin 875 mg tablet 875 mg PO Q12H 10 days #20 tabs 07/28/22 Allergies Allergy/AdvReac Type Severity Reaction Status Date / Time No Known Allergies Allergy Verified 05/21/22 17:50 Worker's Comp Is this a Worker's Comp case?: No [facility] Disclaimer: The information contained in this section may have been updated after the patient was seen, as this information can be updated by other users. Surgical History (Updated 07/28/22 @ 20:37 by Citlaly Rooney RN) History of cholecystectomy History of tonsillectomy Social History Smoking Status: Never smoker second hand exposure: No alcohol intake: never substance use type: marijuana current occupational status: other Travel in the last 8 weeks: None household members: family housing: house ROS Obtained: Yes All systems reviewed & no additional complaints except as documented and Yes Systems reviewed as appropriate & no additional complaints except as documented Constitutional Constitutional: Reports system reviewed and no additional complaints, except as documented and Reports as per HPI Eyes Eyes: Reports system reviewed and no additional complaints, except as documented and Reports as per HPI ENT Ears, Nose, Mouth, and Throat: Reports system reviewed and no additional complaints, except as documented, Reports as per HPI and Reports otalgia Cardiovascular Cardiovascular: Reports system reviewed and no additional complaints, except as documented and Reports as per HPI Respiratory Respiratory: Reports system reviewed and no additional complaints, except as documented and Reports as per HP
[2022-07-28 21:22] VITALS: BP 131/75; PULSE 76; RESP 19; TEMP 36.9; O2SAT 98
== END 2022-07-28 21:26 | disposition home or self-care (01) ==
PROVIDERS: Emergency Provider Nurse Practitioner
DX: H66.93 Otitis media, unspecified, bilateral (principal)
CPT/HCPCS: 99212; 99214; G0463

== ENCOUNTER 2023-11-24 13:02 | Emergency (ER) | payer OTHER, SELFPAY ==
[2023-11-24 13:23] VITALS: BP 111/74; PULSE 67; RESP 20; TEMP 36.6; O2SAT 98; BMI 29.2
--- NOTE | 2023-11-24 13:32 | EXP.UTC ---
Discharge Plan Disposition Patient Disposition: Home, Self-Care Condition: Good Prescriptions Prescriptions: New ondansetron 4 mg tablet,disintegrating 4 mg PO Q8H PRN (Reason: nausea and vomiting) Qty: 10 0RF No Action testosterone cypionate 200 mg/mL oil 100 mg IM WEEKLY Patient Comments: inject 0.5 ML INTRAMUSCULARLY ONCE a WEEK DIRECTED --discard remainder in vial AFTER each injection-- Referrals Follow up/Referrals: Provider,Referral, MD [Primary Care Provider] - See instructions Activity Restrictions/Add. Instructions Additional Instructions/Restrictions: Drink extra fluids with and between meals. If you have difficulty drinking, try very small amounts of water or suck on ice chips. ? Avoid fruit juices, as these do not replace minerals and can actually increase diarrhea. ? Children and adults can use sports drinks to replenish electrolytes. Younger children and infants should use products formulated for children, like oral rehydration solutions. ? Eat food in small amounts and let your stomach recover. ? Get lots of rest. You may feel tired or weak. ? No greasy or fried foods for the next 24-48 hours BRAT diet Bananas Rice Apples and [place] ? Make sure to drink plenty of liquids ? Return if needed ? Straight to ER if any life threatening symptoms ? Zofran as prescribed ? Follow up with family doctor in the next 48-72 hours if no improvement or any worsening of symptoms Clinical Impressions Clinical Impression: Viral syndrome Stand Alone Forms Stand Alone Forms: Work/School Release Instructions Patient Instructions: Nausea and Vomiting-Adult, DI for Viral Syndrome Print Language Print Language: Martiniquais Discharge ED Provider: Lashanda Leary [facility] [place] HPI General Stated complaint: congestion, vomiting, fever, body aches Mode of Arrival: Ambulatory Source of Information: Patient Time Seen by Provider: 11/24/23 13:33 Description of Symptoms (Recalled from Triage Doc. by RN): VOIMITING, BODY ACHES AND FEVER HEENT Symptoms (Recalled from RN notes): No Resp Symptoms (Recalled from RN notes): No Skin Symptoms (Recalled from RN notes): No MS Symptoms (Recalled from RN notes): Yes (BODY ACHE) Functional Status (Recalled from RN notes): WNL History of Present Illness Provider Complaint: Patient states that she started last night with body aches, chills, fever, and this morning had some Vomiting and was unable to go to work so this evening when she was still not feeling any better she came in to get checked Related Data Home Medications ?Medication ?Instructions ?Recorded ?Confirmed testosterone cypionate 200 mg/mL 100 mg IM WEEKLY . 07/28/22 11/24/23 intramuscular oil Previous Rx's ?Medication ?Instructions ?Recorded ondansetron 4 mg disintegrating 4 mg PO Q8H PRN nausea and 11/24/23 tablet vomiting #10 tabs Allergies Allergy/AdvReac Type Severity Reaction Status Date / Time No Known Allergies Allergy Verified 05/21/22 17:50 Worker's Comp Is this a Worker's Comp case?: No [facility] Disclaimer: The information contained in this section may have been updated after the patient was seen, as this information can be updated by other users. Surgical History (Updated 07/28/22 @ 20:37 by Citlaly Rooney RN) History of tonsillectomy History of cholecystectomy Social History Smoking Status: Never smoker second hand exposure: No alcohol intake: never substance use type: marijuana current occupational status: other Travel in the last 8 weeks: None household members: family housing: house ROS Obtained: Yes All systems reviewed & no additional complaints except as documented and Yes Systems reviewed as appropriate & no additional complaints except as documented Constitutional Constitutional: Reports system reviewed and no additional complaints, except as documented, Reports as per HPI, Reports body ache and Reports chills ENT Ears, Nose, Mouth, and Throat: Reports system reviewed and no additional complaints, except as documented, Reports as per HPI, Reports nasal congestion and Reports nasal discharge Cardiovascular Cardiovascular: Reports system reviewed and no additional complaints, except as documented and Reports as per HPI Respiratory Respiratory: Reports system reviewed and no additional complaints, except as documented and Reports as per HPI Gastrointestinal Gastrointestingal: Reports system reviewed and no additional complaints, except as documented, as per HPI, nausea and vomiting Physical Exam General General appearance: alert and in no apparent distress ENT ENT exam: Present mucous membranes moist Expanded ENT Exam Nose exam: Absent sinus tenderness (reports nasal congestion) Throat exam: Present normal inspection Respiratory Respiratory exam: Present normal lung sounds bilaterally; Absent respiratory distress or wheezes Cardiovascular Cardiovascular exam: Present regular rate, normal rhythm and normal heart sounds Abdominal Exam Abdominal exam: Present soft and normal bowel sounds; Absent distention or tenderness Neurological Exam Neurological exam: Present alert, oriented X3 and normal gait Medical Decision Making Medical Records Screening: Per USPSTF and CDC recommendations, given the prevalence of disease in our region, it is our hospital?s policy to screen for HIV and viral Hepatitis for all patients aged 18 and over and those with ongoing risk factors. Jamey Inquiry Pt receiving controlled substance: No Jamey was queried for this patient: No Vital Signs: 11/24/23 13:23 Temperature 97.9 F Temperature Source Oral Pulse Rate [Left Brachial] 67 Respiratory Rate 20 Blood Pressure [Left Arm] 111/74 Blood Pressure Mean [Left Arm] 86 02 Sat by Pulse Oximetry 98 Orders (Tests/Meds): ORDERS Category Date Time Status Rapid PCR Covid and Flu A/B Stat Lab 11/24/23 13:32 Ordered
[2023-11-24 13:56] VITALS: BP 111/74; PULSE 67; RESP 20; TEMP 36.6
== END 2023-11-24 13:56 | disposition home or self-care (01) ==
PROVIDERS: Emergency Provider Nurse Practitioner
DX: R11.2 Nausea with vomiting, unspecified (principal); R50.9 Fever, unspecified; B34.9 Viral infection, unspecified
CPT/HCPCS: 87635; 99212; 99214; G0463

== ENCOUNTER 2024-02-09 10:08 | Emergency (ER) | payer OTHER, SELFPAY ==
[2024-02-09 11:15] VITALS: BP 106/67; PULSE 66; RESP 20; TEMP 36.6; O2SAT 97; BMI 31.6
--- NOTE | 2024-02-09 11:16 | EXP.UTC ---
Discharge Plan Disposition Patient Disposition: Home, Self-Care Condition: Good Prescriptions Prescriptions: New ondansetron 4 mg Tablet,Disintegrating 4 mg PO Q8H PRN (Reason: Nausea) Qty: 20 0RF dicyclomine 20 mg tablet 20 mg PO TID PRN (Reason: abdominal pain) Qty: 30 0RF No Action testosterone cypionate 200 mg/mL oil 100 mg IM WEEKLY Patient Comments: inject 0.5 ML INTRAMUSCULARLY ONCE a WEEK DIRECTED --discard remainder in vial AFTER each injection-- Referrals Follow up/Referrals: Provider,Referral, MD [Primary Care Provider] - See instructions Activity Restrictions/Add. Instructions Additional Instructions/Restrictions: Drink plenty of fluids. Take tylenol for pain or fever. Take the medications as directed. Follow up with your regular doctor. GO TO THE ER FOR ANY WORSENING SYMPTOMS Clinical Impressions Clinical Impression: Gastroenteritis Stand Alone Forms Stand Alone Forms: Work/School Release Instructions Patient Instructions: Viral Gastroenteritis, DI for Viral Gastroenteritis -- Adult, Ondansetron, Dicyclomine Print Language Print Language: Croatian Discharge ED Provider: Basil Galvez [facility] General Stated complaint: stomach pain head congestion Time Seen by Provider: 02/09/24 11:19 Related Data Home Medications ?Medication ?Instructions ?Recorded ?Confirmed testosterone cypionate 200 mg/mL 100 mg IM WEEKLY 07/28/22 02/09/24 intramuscular oil Previous Rx's ?Medication ?Instructions ?Recorded dicyclomine 20 mg tablet 20 mg PO TID PRN abdominal pain 02/09/24 #30 tabs ondansetron 4 mg disintegrating 4 mg PO Q8H PRN Nausea #20 tabs 02/09/24 tablet Allergies Allergy/AdvReac Type Severity Reaction Status Date / Time No Known Allergies Allergy Verified 05/21/22 17:50 [facility] Disclaimer: The information contained in this section may have been updated after the patient was seen, as this information can be updated by other users. Surgical History (Updated 07/28/22 @ 20:37 by Citlaly Rooney RN) History of tonsillectomy History of cholecystectomy Social History Smoking Status: Never smoker second hand exposure: No alcohol intake: never substance use type: marijuana current occupational status: other Travel in the last 8 weeks: None household members: family housing: house ROS Obtained: Yes All systems reviewed & no additional complaints except as documented Constitutional Constitutional: Denies chills, Denies fever(s) and Reports poor appetite ENT Ears, Nose, Mouth, and Throat: Denies dizziness and Denies sore throat Cardiovascular Cardiovascular: Denies dyspnea Respiratory Respiratory: Denies chest congestion, Denies cough and Denies dyspnea Gastrointestinal Gastrointestingal: Reports as per HPI, cramping, diarrhea, nausea and vomiting; Denies abdominal pain Genitourinary Female Genitourinary: Denies difficulty voiding, Denies dysuria, Denies hematuria, Denies urinary frequency, Denies urinary incontinence, Denies urinary hesitancy and Denies urinary urgency Musculoskeletal Musculoskeletal: Denies arthralgias Integumentary/Breasts Skin/Breast: Denies rash Neurologic Neurologic: Denies dizziness Physical Exam General General appearance: alert and in no apparent distress Head Head exam: atraumatic and normocephalic Eye Eye exam: Present normal appearance, PERRL and EOMI ENT ENT exam: Present normal exam, normal oropharynx, mucous membranes moist, TM's normal bilaterally and normal external ear exam Neck Neck exam: Present normal inspection, full ROM and trachea midline; Absent tenderness, meningismus or lymphadenopathy Chest Chest inspection: Present normal inspection and symmetric chest wall rise; Absent tenderness, rash or abscess Respiratory Respiratory exam: Present normal lung sounds bilaterally; Absent respiratory distress, wheezes or stridor Cardiovascular Cardiovascular exam: Present regular rate and normal rhythm; Absent irregular rhythm, systolic murmur, diastolic murmur or JVD Abdominal Exam Abdominal exam: Present soft and hyperactive bowel sounds; Absent distention, tenderness, guarding, rebound, rigidity, psoas sign, obturator sign, heel tap sign, Escamilla's sign, Rovsing's sign or tenderness at McBurney's Point Extremities Exam Extremities exam: Present normal inspection and full ROM; Absent tenderness Back Exam Back exam: Present normal inspection and full ROM; Absent tenderness, CVA tenderness (R) or CVA tenderness (L) Neurological Exam Neurological exam: Present alert, oriented X3 and CN II-XII intact Psychiatric Psychiatric exam: Present normal affect and normal mood Skin Skin exam: Present warm, dry, intact and normal color Lymphatic Lymphatic Findings: no adenopathy Medical Decision Making Medical Records Medical records reviewed: No I reviewed the patient's medical records. Screening: Per USPSTF and CDC recommendations, given the prevalence of disease in our region, it is our hospital?s policy to screen for HIV and viral Hepatitis for all patients aged 18 and over and those with ongoing risk factors. Jamey Inquiry Pt receiving controlled substance: No Lab Data Lab results reviewed: Yes I reviewed the patient's lab results.
[2024-02-09 12:10] VITALS: BP 106/67; PULSE 66; RESP 20; TEMP 36.6; O2SAT 97
== END 2024-02-09 12:13 | disposition home or self-care (01) ==
PROVIDERS: Emergency Provider Nurse Practitioner Family
DX: K52.9 Noninfective gastroenteritis and colitis, unspecified (principal); R51.9 Headache, unspecified; R10.9 Unspecified abdominal pain; R09.81 Nasal congestion; R11.2 Nausea with vomiting, unspecified; R63.8 Other symptoms and signs concerning food and fluid intake
CPT/HCPCS: 99212; G0381

== ENCOUNTER 2024-03-17 18:35 | Emergency (ER) | payer OTHER, SELFPAY ==
--- NOTE | 2024-03-17 18:43 | PC.NURSE ---
pt wants to wait for a room to have a visitor and not go to room 12 that is available.
[2024-03-17 19:33] VITALS: BP 151/94; PULSE 79; RESP 16; TEMP 36.6; O2SAT 98; BMI 31.6
--- NOTE | 2024-03-17 19:57 | HMH.EDGENADL ---
Discharge Plan Disposition Patient Disposition: Home, Self-Care Condition: Good Prescriptions Prescriptions: New ondansetron 4 mg tablet,disintegrating 4 mg PO Q8H PRN (Reason: nausea and vomiting) 5 Days Qty: 10 0RF omeprazole 20 mg capsule,delayed release(DR/EC) 20 mg PO DAILY 28 Days Qty: 28 0RF ketorolac 10 mg tablet 10 mg PO Q8H PRN (Reason: pain) 1 Days Qty: 10 0RF No Action testosterone cypionate 200 mg/mL oil 100 mg IM WEEKLY Patient Comments: inject 0.5 ML INTRAMUSCULARLY ONCE a WEEK DIRECTED --discard remainder in vial AFTER each injection-- ondansetron 4 mg Tablet,Disintegrating 4 mg PO Q8H PRN (Reason: Nausea) Qty: 20 0RF dicyclomine 20 mg tablet 20 mg PO TID PRN (Reason: abdominal pain) Qty: 30 0RF Referrals Follow up/Referrals: Johnson Noonan DO [Primary Care Provider] - See instructions Activity Restrictions/Add. Instructions Additional Instructions/Restrictions: I prescribed pain, nausea, and acid reducing medications for you to take as needed for your nausea and vomiting that seems to be most likely due to enteritis or a stomach bug based off the information available at this time. Your labs are overall reassuring and given that your symptoms have improved you are stable for discharge at this time. Please return with any new or worsening symptoms and make sure you are staying hydrated. Clinical Impressions Clinical Impression: Nausea & vomiting Stand Alone Forms Stand Alone Forms: Work/School Release Instructions Patient Instructions: DI for Acute Abdominal Pain Print Language Print Language: Azerbaijani Discharge ED Provider: Nasim Guillen Adult HPI General Chief complaint: Abdominal Pain Stated complaint: stomach pain,V/N Time Seen by Provider: 03/17/24 19:57 Mode of Arrival: Ambulatory Source of Information: Patient Limitations: No Limitations Description of Symptoms (Recalled from ER Triage Doc. by RN): Patient ambulatory to ED with complaints of upper abdominal pain with N/V/D x3days. Patient reports pain of 6/10 with sharp intermittent pain. Denies fevers. History of Present Illness HPI narrative: Patient presents for evaluation of epigastric abdominal pain with associated nausea, vomiting, gradual in onset, starting after eating fast food meal, constant, stable in course, no previous therapies. Patient has not had similar symptoms before. Patient is status post cholecystectomy. Patient has not noted any hemoptysis, hematemesis, melena or hematochezia. No dysuria or frequency. No pain elsewhere. Please note that above description of symptoms, in this electronic medical record under categorization of recalled from ER triage doctor by RN are reflective of an initial nursing assessment, however, is not reflective of my full history and physical exam that was personally taken and clarified. Consequentially, this preceding description of symptoms, which may include the patient's categorized chief complaint in the EMR, do not reflect my personal clinical impression, and the ultimate description of history of present illness and patient stated complaints should be deferred to this section of the note. Unless stated otherwise or congruent with this section of the note, additional signs, symptoms, or incongruence should be interpreted as inaccurate with my clinical impression. Related Data Home Medications ?Medication ?Instructions ?Recorded ?Confirmed testosterone cypionate 200 mg/mL 100 mg IM WEEKLY 07/28/22 02/09/24 intramuscular oil Previous Rx's ?Medication ?Instructions ?Recorded dicyclomine 20 mg tablet 20 mg PO TID PRN abdominal pain 02/09/24 #30 tabs ondansetron 4 mg disintegrating 4 mg PO Q8H PRN Nausea #20 tabs 02/09/24 tablet ketorolac 10 mg tablet 10 mg PO Q8H PRN pain 1 day #10 03/17/24 tabs omeprazole 20 mg capsule,delayed 20 mg PO DAILY 28 days #28 caps 03/17/24 release ondansetron 4 mg disintegrating 4 mg PO Q8H PRN nausea and 03/17/24 tablet vomiting 5 days #10 tabs Allergies Allergy/AdvReac Type Severity Reaction Status Date / Time No Known Allergies Allergy Verified 05/21/22 17:50 [facility] Disclaimer: The information contained in this section may have been updated after the patient was seen, as this information can be updated by other users. Surgical History (Updated 07/28/22 @ 20:37 by Citlaly Rooney RN) History of tonsillectomy History of cholecystectomy Social History Smoking Status: Current every day smoker second hand exposure: No alcohol intake: never substance use type: marijuana current occupational status: other Travel in the last 8 weeks: None household members: family housing: house Have you lived/traveled outside [place] in past 30 days?: No Contact w/someone who lives/traveled outside [place] past 30 days?: No Exposure to someone with infectious disease in past 14 days?: No Do you have a fever (greater than 100.4 F or 38 C)?: No Have you tested positive for COVID-19: No Exposed to someone with COVID-19 in past 14 days?: No Do you have a sore throat?: No Do you have a cough?: No Do you have any weakness?: No Do you have any diarrhea?: No Are you experiencing any unusual bleeding?: No Do you have any muscle aches/pain?: No Do you have any abdominal pain?: Yes Are you experiencing loss of taste or smell?: No Other Medical History Have you received the Flu Vaccine for this season: No Have you received the Pneumonia Vaccine: No ROS Obtained: Yes other As per HPI Physical Exam General General appearance: alert and in no apparent distress Head Head exam: atraumatic and normocephalic Eye Eye exam: Present normal appearance Neck Neck exam: Present normal inspection Chest Chest inspection: Present normal inspection and symmetric chest wall rise Respiratory Respiratory exam: Present normal lung sounds bilaterally; Absent respiratory distress Cardiovascular Cardiovascular exam: Present regular rate and normal rhythm Abdominal Exam Abdominal exam: Present soft Abdominal tenderness: Present LUQ Comment: Very mild in severity Neurological Exam Neurological exam: Present alert and oriented X3 Psychiatric Psychiatric exam: Present normal affect and normal mood Skin Skin exam: Present warm and dry Medical Decision Making Medical Records Medical records reviewed: Yes I reviewed the patient's medical records. Screening: Per USPSTF and CDC recommendations, given the prevalence of disease in our region, it is our hospital?s policy to screen for HIV and viral Hepatitis for all patients aged 18 and over and those with ongoing risk factors. Jamey Inquiry Pt receiving controlled substance: No Vital Signs: 03/17/24 19:33 03/17/24 20:56 Temperature 97.8 F 98.4 F Temperature Source Oral Pulse Rate 78 Pulse Rate [Left] 79 Respiratory Rate 16 18 Blood Pressure 151/94 H Blood Pressure [Right Arm] 151/94 H Blood Pressure Mean [Right Arm] 113 Blood Pressure Source [Right Arm] Automatic Cuff Blood Pressure Position [Right Arm] Sitting 02 Sat by Pulse Oximetry 98 Oxygen Delivery Method Room Air Room Air Lab Data Lab Results 03/17/24 19:42: WBC 10.3, RBC 4.87, Hgb 15.6, Hct 43.2, MCV 88.7, MCH 32.0 H, MCHC 36.1 H, RDW 11.9, Plt Count 319, MPV 10.3, Neut % (Auto) 67.1, Lymph % (Auto) 23.6, [place] % (Auto) 6.7, Eos % (Auto) 1.5, Baso % (Auto) 0.7, Neut # (Auto) 6.9, Lymph # (Auto) 2.4, [place] # (Auto) 0.7, Eos # (Auto) 0.2, Baso # (Auto) 0.1, Sodium 135 L, Potassium 3.5, Chloride 104, Carbon Dioxide 25, Anion Gap 9.5, BUN 11, Creatinine 0.90, Estimated Creat Clear 132, Estimated GFR 78, Est GFR ( Amer) 94, Glucose 99, Calcium 9.8, Total Bilirubin 0.8, AST 25, ALT 26, Alkaline Phosphatase 69, Total Protein 6.9, Albumin 4.5, Globulin 2.4, Albumin/Globulin Ratio 1.9 H, Lipase 31, Serum HCG, Qual Negative, HCV Ab ALIYAH w/Rflx PCR Qn Negative, HIV Ag/Ab Combo Qual Negative 03/17/24 19:42 03/17/24 19:42 Orders (Tests/Meds): ED MEDICATIONS Discontinued Medications Generic Name Dose Route Start Last Admin Trade Name Freq PRN Reason Stop Dose Admin Belladonna Alkaloids 60 ml 03/17/24 20:01 03/17/24 20:11 Belladonna Alkaloids 60 Ml Ml PO 03/17/24 20:02 60 ml ONCE ONE Administration Ketorolac Tromethamine 15 mg 03/17/24 20:01 03/17/24 20:11 Ketorolac 30mg/Ml Vial IV 03/17/24 20:02 15 mg ONCE ONE Administration ORDERS Category Date Time Status CBC w/Auto Diff [Complete Blood Count Auto Diff] Stat Lab 03/17/24 19:42 Completed CMP [Comprehensive Metabolic Panel] Stat Lab 03/17/24 19:42 Completed HCG Qualitative, Serum Stat Lab 03/17/24 19:42 Completed HIV Combo Stat Lab 03/17/24 19:42 Completed Hepatitis C Ab Qual. W/ RFX Stat Lab 03/17/24 19:42 Completed Lipase Stat Lab 03/17/24 19:42 Completed Medical Decision Narrative: Patient with history and exam per above presenting for evaluation of left upper quadrant pain, nausea, vomiting Diagnoses considered include PUD, pancreatitis, based off of overall benign abdominal exam and history most consistent with enteritis, low clinical index of suspicion for acute surgical pathology at this time. ED workup and treatment included: ED MEDICATIONS Discontinued Medications Generic Name Dose Route Start Last Admin Trade Name Ponchoq PRN Reason Stop Dose Admin Belladonna Alkaloids 60 ml 03/17/24 20:01 03/17/24 20:11 Belladonna Alkaloids 60 Ml Ml PO 03/17/24 20:02 60 ml ONCE ONE Administration Ketorolac Tromethamine 15 mg 03/17/24 20:03/17/24 20:11 Ketorolac 30mg/Ml Vial IV 03/17/24 20:02 15 mg ONCE ONE Administration ORDERS Category Date Time Status CBC w/Auto Diff [Complete Blood Count Auto Diff] Stat Lab 03/17/24 19:42 Completed CMP [Comprehensive Metabolic Panel] Stat Lab 03/17/24 19:42 Completed HCG Qualitative, Serum Stat Lab 03/17/24 19:42 Completed HIV Combo Stat Lab 03/17/24 19:42 Completed Hepatitis C Ab Qual. W/ RFX Stat Lab 03/17/24 19:42 Completed Lipase Stat Lab 03/17/24 19:42 Completed Labs were independently interpreted by me, significant for no acute findings Patient had resolution of symptoms upon repeat evaluation. I discussed my clinical impression with patient and answered all questions. At this time, the evidence for any other entities in the differential is insufficient to warrant any further testing or ED observation. This was explained to the patient. The patient was advised that persistent or worsening symptoms require further evaluation. Critical Care Critical Care Time Critical Care Time: No
[2024-03-17 20:07] LABS: Basophils # 0.1 K/mm3 (0-0.2); Basophils % 0.7 % (0.1-2.0); Eosinophils # 0.2 K/mm3 (0.0-0.4); Eosinophils % 1.5 % (0.1-12.0); Hematocrit 43.2 % (37.0-47.0); Hemoglobin 15.6 g/dL (12.2-16.2); Lymphocytes # 2.4 K/mm3 (0.7-4.5); Lymphocytes % 23.6 % (10-50); Mean Corpuscular HGB Conc 36.1 g/dL (31.8-35.4); Mean Corpuscular Volume 88.7 fl (81-99); Mean Platelet Volume 10.3 fl (7.4-10.4); Monocytes # 0.7 K/mm3 (0.1-1.0); Monocytes % 6.7 % (1.7-9.3); Neutrophils # 6.9 K/mm3 (1.8-7.8); Neutrophils % 67.1 % (37.0-80.0); Platelet Count 319 K/mm3 (142-424); Red Blood Count 4.87 M/mm3 (4.20-5.40); Red Cell Distribution Width 11.9 % (11.5-17.5); White Blood Count 10.3 K/mm3 (4.8-10.8)
[2024-03-17 20:10] LABS: Chloride 104 mmol/L (98-107); HCG Qualitative, Serum Negative (Negative)
[2024-03-17 20:11] LABS: Albumin Level 4.5 g/dl (3.5-5.0); Potassium 3.5 mmoL/L (3.5-5.1); Sodium 135 mmol/L (136-145)
[2024-03-17] MEDS: BELLADONNA ALKALOIDS 60 ML ML PO (20:11)
[2024-03-17] MEDS: KETOROLAC 30MG/ML VIAL 15 MG IV (20:11)
[2024-03-17 20:13] LABS: Alanine Aminotransferase 26 U/L (12-78); Aspartate Amino Transferase 25 U/L (14-36); Blood Urea Nitrogen 11 mg/dl (7-17); Creatinine Clearance Estimated 132 mL/min (50-200); Estimated Glomerular Filt Rate 78 ml/min (>60); GFR (African American) 94 ML/MIN (>60)
[2024-03-17 20:14] LABS: Albumin/Globulin Ratio 1.9 (1.1-1.8); Alkaline Phosphatase 69 U/L (38-126); Anion Gap 9.5 mEq/L (5-15); Bilirubin,Total 0.8 mg/dl (0.2-1.3); Calcium 9.8 mg/dl (8.4-10.2); Carbon Dioxide 25 mmol/L (22.0-30.0); Globulin 2.4 g/dL (1.3-3.2); Glucose 99 mg/dl (74-100); Lipase 31 U/L (23-300); Total Protein,Serum 6.9 g/dl (6.3-8.2)
[2024-03-17 20:56] VITALS: BP 151/94; PULSE 78; RESP 18; TEMP 36.9; O2SAT 98
[2024-03-17 20:56] LABS: HIV Combo NEGATIVE (Negative)
[2024-03-17 21:05] LABS: Hepatitis C Ab Qual. W/ RFX NEGATIVE (Negative)
== END 2024-03-17 21:08 | disposition home or self-care (01) ==
PROVIDERS: Emergency Provider Emergency Medicine; PCP Internal Medicine
DX: R10.12 Left upper quadrant pain (principal); R11.2 Nausea with vomiting, unspecified; R19.7 Diarrhea, unspecified
CPT/HCPCS: 80053; 83690; 84703; 85025; 86803; 87389; 96374; 99283; J1885